=== PATIENT | male | born 1955 | race Caucasian/White ===

== ENCOUNTER 2024-08-16 12:02 | Day surgery (SDC) | payer OTHER ==
[~2024-08-16] VITALS: Ht 172.7 cm; Wt 88.2 kg
[~2024-08-16 12:02] MED LIST: Lactated Ringer's 1,000 ML IV ONE; ROSU10TA PO; propofoL 50 ML IV ONE
[2024-08-16] MEDS ORDERED: GABA100 (12:52)
[2024-08-16] MEDS ORDERED: CODACE30 (12:52)
[2024-08-16] MEDS ORDERED: Lactated Ringer's 1,000 ML IV ONE (13:42)
[2024-08-16 15:22] VITALS: BP 127/92
== END 2024-08-16 15:15 | disposition home or self-care (01) ==
LOC: ORSCSDS 12:02
PROVIDERS: Internal Medicine Gastroenterology
PROC: 0DBH8ZX Excision of Cecum, Via Natural or Artificial Opening Endoscopic, Diagnostic (ICD-10-PCS; principal; 2024-08-16 13:30)
DX: D12.0 Benign neoplasm of cecum (principal); K57.30 Diverticulosis of large intestine without perforation or abscess without bleeding; E78.00 Pure hypercholesterolemia, unspecified; Z87.891 Personal history of nicotine dependence; Z79.899 Other long term (current) drug therapy; Z86.0101 Personal history of adenomatous and serrated colon polyps
CPT/HCPCS: 88305; J2704; J7120